=== PATIENT | male | born 1990 | race Caucasian/White ===

== ENCOUNTER 2019-01-22 08:38 | Emergency (ER) | payer OTHER ==
--- NOTE | 2019-01-22 09:15 | EDPHY ---
General Time Seen by Provider: 01/22/19 08:59 Narrative: CLINICAL IMPRESSION: Intermittent substernal chest pain in an adult x3 days ASSESSMENT/PLAN: 28-year-old otherwise healthy male with no cardiovascular risk factors presents to the emergency department with 3 days of intermittent, waxing and waning, 2/10 , substernal, nonradiating, burning chest pain. Patient's vitals on arrival are stable, no hypoxia or respiratory distress. He does not appear in any significant pain. EKG shows normal sinus rhythm with no acute ST or T-wave changes and was reviewed with Dr. Strauss. Troponin 0. Chest x-ray without acute cardiopulmonary abnormality. Remainder of lab work reassuring. Had a long discussion with patient regarding his heart score which is 0. I do not feel he requires emergent cardiac evaluation or admission to the hospital. Have however encouraged him to follow up with his PCP and a cardiology referral was given. He lives closer to the [facility] and will likely pursue follow-up there, however he works in [place]. Low threshold for return to ED sooner for worsening symptoms as discussed in person and discharge papers. DIFFERENTIAL DX: Differential diagnosis includes but not limited to myocardial ischemia, pulmonary embolus, chest wall pain, pleural inflammation, musculoskeletal chest wall pain, aortic aneurysm, and pulmonary infectious causes. ED PROCEDURES: See lab and/or imaging results below ED COURSE: 9:10 a.m.: EKG reviewed with Dr. Strauss, normal sinus rhythm, no acute ST or T- wave changes. Labs and chest x-ray ordered. 9:50 a.m.: Labs and chest x-ray reviewed. No acute abnormality. Troponin negative. No acute cardiopulmonary abnormality. Heart score of 0 reviewed with the patient. Low clinical suspicion for cardiac etiology for chest pain. 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 CHIEF COMPLAINT: Chest pain intermittently x3 days HPI: 28-year-old otherwise healthy male presents to the emergency department with complaints of substernal, sharp, intermittent, waxing and waning chest pain over last 3 days. Patient reports at its worst the pain is rated 2/10. It is not radiating. There is no associated shortness of breath. No abdominal pain nausea or vomiting. He does occasionally have acid reflux but states this pain feels differently. It is not exacerbated by exercise or exertion. It does occasionally wake him from sleep but he describes it as a "sensation". He has never had this pain before. It is not positional. He lives in [place] and drives to [place] daily. He reports no history of DVT or PE. No asymmetric lower extremity swelling. No recent illness cough or URI symptoms. No illnesses at home. No fevers or chills. No history of hypertension, hyperlipidemia, diabetes, he is a nonsmoker and drinks alcohol only socially. No first-degree family relative with cardiovascular disease at a young age. He has not taken anything for his pain. He does note that he has had some mild anxiety, mostly before his [id number] son was born, but states he does not notice it as much anymore. PAST MEDICAL HISTORY: None reported See nurse/triage notes for additional history if applicable Pertinent Past Surgical History: None reported Family History: No first-degree family relative with cardiovascular disease Social History: , lives in [facility], nonsmoker, drinks alcohol socially REVIEW OF SYSTEMS: All other systems negative Constitutional: No fever, no chills, appetite change. Eyes: No discharge, vision change ENT: No sore throat, congestion, ear pain. Cardiovascular: Positive for chest pain, no palpitations. Respiratory: No cough, no shortness of breath. Gastrointestinal: No abdominal pain, no vomiting, diarrhea. Musculoskeletal: No back pain, joint swelling, joint pain, myalgias. PHYSICAL EXAM: General Appearance: Alert, oriented, appropriate, sitting comfortably in the bed, no acute distress cooperative, VSS, no hypoxia. HEENT: Oropharynx clear is no erythema or exudates, no tonsillar hypertrophy or asymmetry. Dentition without abnormality. Neck: Supple, nontender, no lymphadenopathy, no midline pain, FROM, no meningismus. No carotid bruits Respiratory: There are no retractions, lungs are clear to auscultation. No reproducible chest pain to palpation Cardiac: Regular rate and rhythm, no murmurs or gallops. Gastrointestinal: [Abdomen is soft, nontender Neurological: [ Alert and oriented x 3, CN 2-12 grossly intact Skin: Warm, dry, no rashes, no nodules on palpation. Not diaphoretic Musculoskeletal: Extremities are symmetrical, full range of motion, no tenderness, deformity, swelling, or erythema. No asymmetric calf swelling tenderness or erythema MEDICAL DECISION MAKING: Patient was seen independently. Secondary supervising physician at time of evaluation was Dr. Strauss. Diagnosis: Intermittent Chest pain x3 days. New, requires workup Summary: See Assessment and Plan for summary of ED visit Clinical lab tests: ordered / reviewed. Independent visualization of images, tracing, or specimens: Yes. Discussed patient with another provider: Dr. Strauss Patient Progress: Stable for discharge. - Diagnostics Imaging Results: Imaging Impressions Chest X-Ray 01/22/19 09:11 Impression: No acute pulmonary disease. - History Smoking Status: Never smoked - Objective Vital Signs: Initial Vital Signs Temperature (C) 37.1 C 01/22/19 08:47 Heart Rate 68 01/22/19 08:47 Respiratory Rate 16 01/22/19 08:47 Blood Pressure 123/90 H 01/22/19 08:47 O2 Sat (%) 96 01/22/19 08:47 O2 Delivery Mode Room Air Allergies/Adverse Reactions: No Known Allergies Allergy (Unverified 01/22/19 08:47) Home Medications: Medication Instructions Recorded NK [No Known Home Meds] 01/22/19 Laboratory Results: Laboratory Results 01/22/19 09:00 01/22/19 09:00 01/22/19 01/22/19 01/22/19 09:00 09:00 09:00 WBC 5.60 10^3/uL 10^3/uL (3.80-9.50) RBC 5.41 10^6/uL 10^6/uL (4.40-6.38) Hgb 17.7 g/dL H g/dL (13.7-17.5) Hct 49.8 % % (40.0-51.0) MCV 92.1 fL fL (81.5-99.8) MCH 32.7 pg pg (27.9-34.1) MCHC 35.5 g/dL g/dL (32.4-36.7) RDW 11.9 % % (11.5-15.2) Plt Count 213 10^3/uL 10^3/uL (150-400) MPV 11.0 fL fL (8.7-11.7) Neut % (Auto) 56.0 % % (39.3-74.2) Lymph % (Auto) 32.3 % % (15.0-45.0) [place] % (Auto) 9.3 % % (4.5-13.0) Eos % (Auto) 1.1 % % (0.6-7.6) Baso % (Auto) 0.9 % % (0.3-1.7) Nucleat RBC Rel Count 0.0 % % (0.0-0.2) Absolute Neuts (auto) 3.14 10^3/uL 10^3/uL (1.70-6.50) Absolute Lymphs (auto) 1.81 10^3/uL 10^3/uL (1.00-3.00) Absolute Monos (auto) 0.52 10^3/uL 10^3/uL (0.30-0.80) Absolute Eos (auto) 0.06 10^3/uL 10^3/uL (0.03-0.40) Absolute Basos (auto) 0.05 10^3/uL 10^3/uL (0.02-0.10) Absolute Nucleated RBC 0.00 10^3/uL 10^3/uL (0-0.01) Immature Gran % 0.4 % % (0.0-1.1) Immature Gran # 0.02 10^3/uL 10^3/uL (0.00-0.10) Sodium 139 mEq/L mEq/L (135-145) Potassium 5.1 mEq/L mEq/L (3.5-5.2) Chloride 103 mEq/L mEq/L (97-110) Carbon Dioxide 24 mEq/l mEq/l (22-31) Anion Gap 12 mEq/L mEq/L (6-14) BUN 14 mg/dL mg/dL (7-23) Creatinine 0.9 mg/dL mg/dL (0.7-1.3) Estimated GFR > 60 Glucose 92 mg/dL mg/dL (70-100) Calcium 9.5 mg/dL mg/dL (8.5-10.4) POC Troponin I 0.00 ng/mL ng/mL (0.00-0.08) Specimen Hemolysis 228 Point of Care Test Results: Chemistry 01/22/19 09:00 POC Troponin I 0.00 ng/mL ng/mL (0.00-0.08) Departure - Departure Disposition: Home, Routine, Self-Care Clinical Impression: Chest pain in adult Condition: Good Instructions: Chest Pain (ED) Additional Instructions: DISCHARGE INSTRUCTIONS FROM YOUR DOCTOR Thank you for visiting our emergency department today. You were treated by a physician acute care assistant today and your case was reviewed with our ED Attending physician. Please keep in mind that discharge from the emergency department does not mean that there is nothing wrong - it simply means that we have not identified an emergency condition that requires further evaluation or treatment in the hospital. You should always plan to follow up with primary care for re- evaluation of your condition in the next 2-3 days. If you have been referred to a specialist, please call as soon as possible (today or tomorrow) to schedule your follow up appointment at the appropriate time. DIAGNOSTIC EVALUATION IN THE EMERGENCY DEPARTMENT TODAY INCLUDED EKG, CHEST X- RAY, TROPONIN, CBC, AND BASIC METABOLIC PANEL. CARDIAC ENZYMES ARE NEGATIVE, EKG SHOWS NORMAL SINUS RHYTHM WITH NO ARRHYTHMIA, CHEST X-RAY READ BY THE RADIOLOGIST SHOWING NO ABNORMAL FINDINGS, AND THE REMAINDER OF YOUR LAB WORK IS ALSO REASSURING. GIVEN THIS AND HER CLINICAL HISTORY AND EXAM, YOUR CARDIAC HEART SCORE IS 0 INDICATING VERY LOW RISK OF ADVERSE CARDIAC EVENT IN THE NEXT 72 HR. HOWEVER, GIVEN THAT YOU HAVE HAD CHEST PAIN, WE DO RECOMMEND FOLLOW-UP WITH HER PRIMARY CARE DOCTOR AND CARDIOLOGY. 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 PLEASE RETURN TO THE EMERGENCY DEPARTMENT IMMEDIATELY FOR WORSENING OR SEVERE CHEST PAIN, SHORTNESS OF BREATH, FAINTING EPISODES, LIGHTHEADEDNESS, RADIATING PAIN TO THE NECK OR ARM, SWEATING EPISODES, OR ANY OTHER CONCERNS. People present with illnesses and injuries in different ways, and it is always possible that we have missed something. You may always return for re-evaluation if symptoms worsen or if they are not improving or if you develop new/different symptoms. Again, thank you for choosing our emergency department. We hope that you feel better. Referrals: STEPHANIE CARMONA [Other] - 1-2 days without fail Bernardino Garcia MD [Medical Doctor] - 2-3 days, call for appt.
[2019-01-22 09:17] LABS: PLATELET COUNT 213 10^3/uL (150-400)
--- NOTE | 2019-01-22 10:21 | CPEKG ---
Test Reason : OPEN Blood Pressure : / mmHG Vent. Rate : 071 BPM Atrial Rate : 071 BPM P-R Int : 127 ms QRS Dur : 086 ms QT Int : 378 ms P-R-T Axes : 047 019 005 degrees QTc Int : 411 ms Sinus rhythm Confirmed by Jenny Strauss ([id number]) on 01/22/2019 10:20:22 AM Referred By: PHYSICIAN ED Confirmed By:Jenny Strauss
[2019-01-22 10:25] VITALS: BP 136/87
== END 2019-01-22 10:24 | disposition home or self-care (01) ==
DX: R07.89 Other chest pain (principal)
CPT/HCPCS: 84484-ER